=== PATIENT | male | born 1970 | race Caucasian/White ===

== ENCOUNTER 2017-12-02 18:00 | Inpatient (IN) | payer OTHER ==
[2017-12-02] MEDS ORDERED: IOPAMIDOL (ISOVUE-300) 100 ML BTL ONE (18:07)
[2017-12-02] MEDS ORDERED: HYDROmorphONE/DILAUDID 1 MG/ML INJ IVP PRN (20:26)
[2017-12-02] MEDS ORDERED: ONDANSETRON 4 MG/2 ML VIAL IVP PRN (20:26)
[2017-12-02] MEDS ORDERED: LR 1,000 ML IV SCH (20:30)
[2017-12-02] MEDS: PIPERACILLIN/TAZO 3.375 GM/DEX 50 ML IV SCH (21:13)
[2017-12-02] MEDS: ACETAMINOPHEN 500 MG TAB PO SCH (21:14)
--- NOTE | 2017-12-02 21:27 | GHP ---
[f rep st] PREOP HISTORY AND PHYSICAL DATE OF ADMISSION: 12/02/2017 ADMITTING DIAGNOSIS: "Missed" acute appendicitis with abscess. HISTORY: The patient is a 47-year-old white male who was in his usual state of good health until approximately 3 weeks ago. Initially, he had a feeling of being bloated. He also felt he had indigestion. This lasted for several days, then went away for several days, then returned. Six days ago, he started having fevers and sweats. Things became worse last night. He was having nausea and in the last 4 nights he has had more stomach pain. He has had loose stools for the last 2 days. There is no history prior to onset of an upper respiratory tract infection, diarrhea or antibiotics in the past 6 months. There is no history of travel in the last 6 months, prior surgery or prior similar symptoms. SOCIAL HISTORY: He is a nonsmoker. He drinks 1-2 drinks per month. ALLERGIES: He has no known drug allergies. MEDICATIONS: He is not taking any medications. PAST SURGICAL HISTORY: Include a repair of a left elbow dislocation age 12 and a fracture of his right thumb. PAST MEDICAL HISTORY: There is no history of rheumatic fever, tuberculosis, hepatitis, or transfusions. REVIEW OF SYSTEMS: He wears lenses for visual correction. He does have a dental crown. Review of systems otherwise quite negative. No limits on his activities. No history of steroid use. FAMILY HISTORY: His mother is 72 years old and alive and well. His father at age 60 of metastatic (liver) colon cancer. The patient is followed in by 2 paternal half siblings, the 1st is a sister age 25 and second is brother who is age 23. There is no bleeding disorders, clotting disorders or difficulty with anesthesia. PHYSICAL EXAMINATION: GENERAL APPEARANCE: The patient is awake, alert, and in minimal distress. He is pleasant, alert, and oriented. NEUROLOGIC: Monetta Coma Scale of 15. There are no focal or lateralizing neurologic findings. NECK : Unremarkable. There are no carotid bruits. There is no thyroid enlargement. BACK: Unremarkable. LUNGS: Clear to auscultation. CARDIAC: Shows S1, S2 to be normal. Normal split of S2 without murmurs, rubs, or gallops. LYMPHATIC: There is no cervical, supraclavicular, axillary, or inguinal lymphadenopathy. ABDOMEN: Hypoactive bowel sounds. He is tender with cough about 3 fingerbreadths below McBurney's point. He rates it a 5 on a scale of 1-10. Psoas and obturator signs are negative. On a scale of 1-10, palpation reveals tenderness as follows: left upper quadrant 1, left mid abdomen 3, left lower quadrant 1, epigastrium 1, periumbilical area 1, suprapubic area 5, right upper quadrant 1, right mid abdomen 4, right lower quadrant 5-6, and in the right lower quadrant a softball sized fullness can be appreciated. LABORATORIES: Pending. IMPRESSION: Patient with a missed appendicitis. He will receive IV antibiotics. I have informally consulted MAKI flores. A formal consult will be obtained tomorrow for percutaneous drainage, if possible. The patient understands that this may preclude the need for subsequent surgical intervention , but that could not be guaranteed. Certainly, if he is dramatically worse in the next 24 hours, a reconsideration of approaches will be undertaken. /[id number]/MODL MTDD
[2017-12-02 21:37] LABS: PLATELET COUNT 397 10^3/uL (150-400)
[2017-12-02] MEDS: KETOROLAC 30 MG/1 ML SDV IVP SCH (23:02)
[2017-12-03] MEDS: ACETAMINOPHEN 500 MG TAB PO SCH ×3 (04:18→20:24)
[2017-12-03] MEDS: PIPERACILLIN/TAZO 3.375 GM/DEX 50 ML IV SCH ×4 (04:18→20:24)
[2017-12-03 04:46] LABS: PLATELET COUNT 355 10^3/uL (150-400)
[2017-12-03 04:52] LABS: INR 1.31 (0.83-1.16); PROTIME(PATIENT) 16.5 SEC (12.0-15.0)
[2017-12-03] MEDS: KETOROLAC 30 MG/1 ML SDV IVP SCH ×4 (05:25→23:57)
--- NOTE | 2017-12-03 12:20 | ASMTCMCOM ---
CM Note CM Note Notes: Chart reviewed. 47year old male with history of 3 weeks of abdominal pain and bloating diagnosed with ruptured appendix. He is to be evaluated for percutaneous drain to be place, undetermined if patient will require surgical intervention at this time. CM to follow. No current needs identified . Plan: TBD Date Signed: 12/03/2017 12:20 PM Electronically Signed By:Gillian Lucas RN
[2017-12-03] MEDS ORDERED: LIDOCAINE 1% 300 MG/30 ML SDV ONE (12:36)
[2017-12-03] MEDS ORDERED: MIDAZOLAM 2 MG/2 ML VIAL IVP PRN (12:45)
[2017-12-03] MEDS ORDERED: NALOXONE HCL 0.4 MG/ML INJ IVP PRN (12:45)
[2017-12-03] MEDS ORDERED: NS 1,000 ML IV SCH (12:45)
[2017-12-03] MEDS ORDERED: MEPERIDINE 25 MG/ML SYR IVP PRN (12:45)
[2017-12-03] MEDS ORDERED: fentaNYL 100 MCG/2 ML INJ IVP PRN (12:45)
[2017-12-03] MEDS ORDERED: FLUMAZENIL 0.5 MG/5 ML MDV IVP PRN (12:45)
--- NOTE | 2017-12-03 13:55 | PDPROPOC ---
Sedation Plan of Care Sedation Plan of Care: vital signs stable, mental status noted, patient educated of risks, benefits, alternatives, patient can tolerate sedation ASA Classification: ASA 2 Planned drugs: fentanyl, midazolam Mallampati Score: Class 2 Mallampati Reference Image:
--- NOTE | 2017-12-03 13:56 | PDGENHP ---
History & Physical Chief Complaint: appendicitis History of Present Illness: appendix abcess likely amenable to drainage. Relevant Physical Exam: NAD aox3 nonperitoneal Cardiorespiratory Assessment: rrr, nl wob
--- NOTE | 2017-12-03 14:02 | PDMN ---
Medical Necessity Medical necessity: [facility] [place] [facility]-gastroenterology A-2 days; pt presents with n/v abd pain, fevers, CT w/ ruptured appendicitis w/ periappendiceal abscess/ phlegmon, anticipate >2 midnights for poss surgical intervention, IVF, IVABx, IV pain meds
--- NOTE | 2017-12-03 14:32 | SOAPPROG ---
SOAP Progress Note Assessment/Plan: Assessment: 47yo M c perfd appy - VSS, HDs - pain controlled - HDS - TRANG - abdomen is soft, he is minimally tender in the low left pelvis. No rebound or guarding - WBC has drifted down on abx alone. will go to IR today for perc drain, will tailor abx to cultures - NPO, will ADAT after IR Plan: 12/03/17 14:31 Subjective: feels well. Objective: Vital Signs Temp Pulse Resp BP Pulse Ox 37.1 C 75 12 102/86 H 98 12/03/17 13:03 12/03/17 13:03 12/03/17 13:03 12/03/17 13:03 12/03/17 13:03 Laboratory Results 12/03/17 04:30 12/03/17 04:30 12/02/17 12/03/17 12/04/17 05:59 05:59 05:59 Intake Total 1200 Balance 1200 PT 16.5 SEC (12.0-15.0) H 12/03/17 04:30 INR 1.31 (0.83-1.16) H 12/03/17 04:30 ICD10 Worksheet Patient Problems: Problems Problem Status Onset Perforated appendicitis Acute - ICD10 Problem Qualifiers (1) Perforated appendicitis
--- NOTE | 2017-12-03 14:39 | PDRADPN ---
Radiology Procedure Note Date of Procedure: 12/03/17 Radiologist: Albert Garzon Anesthesia: IV Sedation, Local (Specify) Pre-op Diagnosis: appendiceal abscess Post-op Diagnosis: same Indication: perf appy Procedure: CT guided drainage Finding(s): thick white purulence aspirated from 8F drain. irrigated. position is optimal. Inf/Abcess present in the surg proc area at time of surgery?: No Complications: none Specimen(s): yes
[2017-12-04] MEDS: PIPERACILLIN/TAZO 3.375 GM/DEX 50 ML IV SCH ×4 (02:57→20:40)
[2017-12-04] MEDS: ACETAMINOPHEN 500 MG TAB PO SCH ×3 (04:29→20:40)
[2017-12-04 05:47] LABS: PLATELET COUNT 365 10^3/uL (150-400)
[2017-12-04] MEDS: KETOROLAC 30 MG/1 ML SDV IVP SCH ×3 (05:56→18:35)
--- NOTE | 2017-12-04 08:35 | SOAPPROG ---
SOAP Progress Note Assessment/Plan: 12/04/17 08:31 PAD#2 Assessment: Missed appendicitis with abscess drained by IR yesterday. Drainage serous high volume beginning to diminish. Plan: Continue antibiotics and drainage. will start flushing cath now that drainage is diminishing to keep it patient. Subjective: I'm moving my bowels and passing gas Objective: Vital Signs Temp Pulse Resp BP Pulse Ox 37.1 C 55 L 16 135/85 H 98 12/04/17 04:00 12/04/17 04:00 12/04/17 04:00 12/04/17 04:00 12/04/17 04:00 Microbiology 12/03/17 14:20 Gram Stain - Final Appendix - Other Laboratory Results 12/04/17 05:30 12/04/17 05:30 12/03/17 12/04/17 12/05/17 05:59 05:59 05:59 Intake Total 1200 1660 Output Total 932 Balance 1200 728 PT 16.5 SEC (12.0-15.0) H 12/03/17 04:30 INR 1.31 (0.83-1.16) H 12/03/17 04:30 - Time Spent With Patient Time Spent With Patient: 25 - mainly discussing physiology and plans - Pending Discharge Pending Discharge Within 24 Hours: No Pending Discharge Within 48 Hours: No Physical Exam - Physical Exam General Appearance: WD/WN, alert, mild distress Neck: non-tender, supple Respiratory: chest non-tender, lungs clear, normal breath sounds Cardiac/Chest: regular rate, rhythm Abdomen: normal bowel sounds, non-tender, distended, other (drainin place, drainage serous) Male Genitalia: deferred Rectal: deferred Back: Normal inspection Skin: normal color, warm/dry Extremities: normal range of motion, non-tender Neuro/Psych: alert, normal mood/affect, oriented x 3 ICD10 Worksheet Patient Problems: Problems Problem Status Onset Perforated appendicitis Acute
[2017-12-05] MEDS: KETOROLAC 30 MG/1 ML SDV IVP SCH ×4 (00:21→19:01)
[2017-12-05] MEDS: PIPERACILLIN/TAZO 3.375 GM/DEX 50 ML IV SCH ×4 (03:39→20:20)
[2017-12-05] MEDS: ACETAMINOPHEN 500 MG TAB PO SCH ×3 (04:36→20:20)
[2017-12-05 06:20] LABS: PLATELET COUNT 426 10^3/uL (150-400)
[2017-12-05] MEDS ORDERED: ONDANSETRON 4 MG/2 ML VIAL IVP PRN (15:02)
--- NOTE | 2017-12-05 15:37 | SOAPPROG ---
SOAP Progress Note Assessment/Plan: 12/04/17 08:31 PAD#2 Assessment: Missed appendicitis with abscess drained by IR yesterday. Drainage serous high volume beginning to diminish. Plan: Continue antibiotics and drainage. will start flushing cath now that drainage is diminishing to keep it patient. 12/05/17 15:33 PAD#3 Assessment: Had an uncomfortable night again last nigh but has felt much better today. Drainage down, WBC still slightly elevated, Afebrile, Bowel function continues Discussion regarding C. diff carried out, Plan: Continue drain irrigation and antibiotics, Follow wbc, Await sensitivities Subjective: " I think I understand our goals better now" Objective: Vital Signs Temp Pulse Resp BP Pulse Ox 36.8 C 89 20 128/70 H 95 12/05/17 11:19 12/05/17 11:19 12/05/17 11:19 12/05/17 11:19 12/05/17 11:19 Microbiology 12/03/17 14:20 Gram Stain - Final Appendix - Other Laboratory Results 12/05/17 04:54 12/05/17 04:54 12/04/17 12/05/17 12/06/17 05:59 05:59 05:59 Intake Total 1660 Output Total 932 30 Balance 728 -30 PT 16.5 SEC (12.0-15.0) H 12/03/17 04:30 INR 1.31 (0.83-1.16) H 12/03/17 04:30 - Time Spent With Patient Time Spent With Patient: 25 mainly reviewing pathology, progress and setting expectations - Pending Discharge Pending Discharge Within 24 Hours: No Pending Discharge Within 48 Hours: No Physical Exam - Physical Exam General Appearance: WD/WN, alert, mild distress Respiratory: chest non-tender, lungs clear, normal breath sounds Cardiac/Chest: regular rate, rhythm Abdomen: normal bowel sounds, non-tender, soft, other (BETI drainage now more serous and diminishing) Male Genitalia: deferred Rectal: deferred Back: Normal inspection Skin: normal color, warm/dry Extremities: normal range of motion, non-tender, normal inspection Neuro/Psych: no motor/sensory deficits, alert, normal mood/affect ICD10 Worksheet Patient Problems: Problems Problem Status Onset Perforated appendicitis Acute
[2017-12-06] MEDS: KETOROLAC 30 MG/1 ML SDV IVP SCH ×4 (00:17→18:10)
[2017-12-06] MEDS: PIPERACILLIN/TAZO 3.375 GM/DEX 50 ML IV SCH ×4 (03:17→20:37)
[2017-12-06] MEDS: ACETAMINOPHEN 500 MG TAB PO SCH ×3 (04:32→20:37)
[2017-12-06 08:00] LABS: PLATELET COUNT 433 10^3/uL (150-400)
--- NOTE | 2017-12-06 13:26 | SOAPPROG ---
SOAP Progress Note Assessment/Plan: 12/04/17 08:31 PAD#2 Assessment: Missed appendicitis with abscess drained by IR yesterday. Drainage serous high volume beginning to diminish. Plan: Continue antibiotics and drainage. will start flushing cath now that drainage is diminishing to keep it patient. 12/05/17 15:33 PAD#3 Assessment: Had an uncomfortable night again last nigh but has felt much better today. Drainage down, WBC still slightly elevated, Afebrile, Bowel function continues Discussion regarding C. diff carried out, Plan: Continue drain irrigation and antibiotics, Follow wbc, Await sensitivities 12/06/17 13:16 PAD#4 Assessment: Continues to slowly improve. Drainage clear and low volume. WBC stable at 12. Pain control good. Plan: Consider transition to oral antibiotics tomorrow. would leave drain in for the near term Subjective: i feel tired Objective: Vital Signs Temp Pulse Resp BP Pulse Ox 37.3 C 73 12 142/85 H 95 12/06/17 08:00 12/06/17 08:00 12/06/17 08:00 12/06/17 08:00 12/06/17 08:00 Microbiology 12/03/17 14:20 Gram Stain - Final Appendix - Other Laboratory Results 12/06/17 07:40 12/05/17 04:54 12/05/17 12/06/17 12/07/17 05:59 05:59 05:59 Output Total 30 20 Balance -30 -20 PT 16.5 SEC (12.0-15.0) H 12/03/17 04:30 INR 1.31 (0.83-1.16) H 12/03/17 04:30 - Time Spent With Patient Time Spent With Patient: 15 Physical Exam - Physical Exam General Appearance: WD/WN, alert, no apparent distress Respiratory: chest non-tender, lungs clear, normal breath sounds Cardiac/Chest: regular rate, rhythm Abdomen: normal bowel sounds, non-tender, soft Male Genitalia: deferred Rectal: deferred Back: Normal inspection Skin: normal color, warm/dry Neuro/Psych: no motor/sensory deficits, alert, normal mood/affect ICD10 Worksheet Patient Problems: Problems Problem Status Onset Perforated appendicitis Acute
--- NOTE | 2017-12-06 16:15 | ASMTCMCOM ---
CM Note CM Note Notes: Appendicitis w/abscess irrigated, draining and IV ABX continues. May not have discharge needs. CM to follow if things change. Date Signed: 12/06/2017 04:14 PM Electronically Signed By:Mary Gonzales LCSW
[2017-12-07] MEDS: KETOROLAC 30 MG/1 ML SDV IVP SCH ×3 (00:12→12:51)
[2017-12-07] MEDS: PIPERACILLIN/TAZO 3.375 GM/DEX 50 ML IV SCH ×4 (03:51→21:19)
[2017-12-07] MEDS: ACETAMINOPHEN 500 MG TAB PO SCH ×3 (04:52→21:07)
[2017-12-07 07:54] LABS: PLATELET COUNT 464 10^3/uL (150-400)
[2017-12-07] MEDS ORDERED: KETOROLAC 15 MG/1 ML SDV IVP PRN (13:33)
--- NOTE | 2017-12-07 13:57 | SOAPPROG ---
SOAP Progress Note Assessment/Plan: Assessment: 47yo M c perfd appy - continues to do well clinically. - WBC has stagnated at 12, abdomen remains soft and really nontender other than at the site - will plan for repeat CT of abdomen tomorrow - plan pending CT. - Cx growing strep anginosus which is known to recur, will need LT abx. I have asked Dr Cruz of [place] to consult on the patient. Plan: 12/03/17 14:31 12/07/17 13:51 Subjective: doing well. Objective: Vital Signs Temp Pulse Resp BP Pulse Ox 36.7 C 78 16 122/86 H 94 12/07/17 08:00 12/07/17 08:00 12/07/17 08:00 12/07/17 08:00 12/07/17 08:00 Microbiology 12/03/17 14:20 Gram Stain - Final Appendix - Other Laboratory Results 12/07/17 07:40 12/05/17 04:54 12/06/17 12/07/17 12/08/17 05:59 05:59 05:59 Intake Total 580 Output Total 20 10 Balance -20 570 PT 16.5 SEC (12.0-15.0) H 12/03/17 04:30 INR 1.31 (0.83-1.16) H 12/03/17 04:30 ICD10 Worksheet Patient Problems: Problems Problem Status Onset Perforated appendicitis Acute - ICD10 Problem Qualifiers (1) Perforated appendicitis
--- NOTE | 2017-12-07 19:32 | GCON ---
[f rep st] CONSULTATION INFECTIOUS DISEASES CONSULTATION DATE OF CONSULTATION: 12/07/2017 REFERRING PHYSICIAN: Tay Gibson MD REQUESTING PHYSICIAN: Antoine Dumont MD REASON FOR CONSULTATION: Periappendiceal abscess. HISTORY OF PRESENT ILLNESS: The patient is a 47-year-old male without significant past medical histo ry, whom I am asked to see in consultation for periappendiceal abscess. The patient describes develo ping abdominal bloating and pain approximately 4 weeks ago. This was associated with increased heart burn. He notes this occurred intermittently in the interval weeks until he developed a fever and swe ats. This also became associated with nausea, and he had worsening abdominal pain ultimately prompti ng a visit to his primary care physician. He notes that there was a palpable mass in the right lower quadrant, and concern was raised about potential of preceding appendicitis. Evaluation in the emerg ency department revealed a 4.8 x 3.5 x 6.0 cm, peripherally enhancing fluid collection in the right l ower quadrant at the posterior aspect of an enlarged hyperemic appendix. This was felt to be compati ble with ruptured appendicitis and periappendiceal abscess/phlegmon. Subsequently, the patient under went percutaneous drainage of this fluid collection on 12/03/2017. Gram stain showed 4+ white blood cells with 1+ GPCs in chains and subsequently has grown 4+ Streptococcus constellatus. The patient h as been receiving treatment with Zosyn in the interim since presentation. He feels clinically improv ed with decreasing abdominal pain. No further fever, chills or sweats. He is not experiencing nause a, vomiting or diarrhea. Given the growth of Streptococcus constellatus, Infectious Diseases is now consulted to help assist with antibiotic selection and duration. The patient is scheduled for a foll owup CT scan in the morning to reassess abscess. Given the above findings, I am now asked to assist in his ongoing management. PAST MEDICAL HISTORY: Unremarkable. PAST SURGICAL HISTORY: Elbow dislocation, right thumb fracture. CURRENT MEDICATIONS: Zosyn 3.375 g IV q.6 hours, Dilaudid as needed, Toradol as needed. ALLERGIES: No known drug allergies. SOCIAL HISTORY: Patient does not smoke. He rarely drinks alcohol. No drug use. 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 No pets at home. No recent travel. FAMILY HISTORY: Father of colon cancer. REVIEW OF SYSTEMS: Outside that noted in the HPI, remainder of 10-system review was unremarkable. PHYSICAL EXAMINATION: VITAL SIGNS: Temperature 36.6, heart rate 83, respiratory rate 16, blood pres sure 136/80, oxygen saturation 94% on room air. GENERAL: Patient is well nourished, well developed, in no acute distress. He appears nontoxic. HEENT: There is no scleral icterus, conjunctival injec tion, or conjunctival petechiae. The oropharynx is clear without lesions. Mucous membranes are mois t. Dentition is in good repair. There is no nasal discharge. There is no tenderness over the front al, maxillary, or mastoid area. NECK: Supple without palpable lymphadenopathy or thyromegaly. CHES T: Clear to auscultation bilaterally without adventitious sounds. The respiratory effort is normal. CARDIOVASCULAR: Regular rate and rhythm without murmurs, gallops, or rubs. ABDOMEN: Soft, mildly tender in the right lower quadrant. Bowel sounds are present. Drain is in place with serous output . There is a small amount of debris in the drain bulb. No palpable organomegaly. MUSCULOSKELETAL: No cyanosis, clubbing, or edema. SKIN: No rashes present. Skin is warm and dry to touch. NEUROLO GIC: Patient is alert and interacts appropriately with examiner. Cranial nerves 2-12 are grossly in tact. Sensation is grossly intact. Muscle tone and bulk are normal. LYMPHATICS: No cervical or landeros praclavicular nodes palpable. LABORATORY DATA: White blood cell count 12.7, hematocrit 35.5, platelets 464, neutrophils 78%. Seru m creatinine 0.7. Abscess cultures with growth of Streptococcus constellatus. CT scan of the abdome n and pelvis as outlined above, which was reviewed and interpreted by me with Radiology today. IMPRESSION: Perforated appendicitis with periappendiceal abscess: Abscess is now status post percut aneous drainage with appendectomy, deferred based on presence of abscess and phlegmon with likely dur ation of several weeks. Given the growth of Streptococcus constellatus, favor a 2-week course of int ravenous antibiotic therapy with ceftriaxone and oral metronidazole. Additional decision making will be based on followup CT scan, which is scheduled for tomorrow. Interval appendectomy will be define d in his surgical followup over time. RECOMMENDATIONS: 1. Ceftriaxone 2 g IV daily. 2. Metronidazole 500 mg orally 3 times per day. 3. Discontinue Zosyn. 4. PICC line placement. 5. Risks and benefits of antibiotic therapy and PICC line discussed with patient today, including ne ed to avoid alcohol with metronidazole and potential risk of peripheral neuropathy; side effects of c eftriaxone, including potential for allergic reactions also discussed with patient. 6. Await repeat CT scan, which will be performed tomorrow. Thank you for this consultation. We will continue to follow the patient with you. /[id number]/MODL
[2017-12-07] MEDS ORDERED: ALTEPLASE 2 MG VIAL IVP PRN (19:49)
[2017-12-08] MEDS: ACETAMINOPHEN 500 MG TAB PO SCH ×3 (06:11→21:01)
[2017-12-08] MEDS: metroNIDAZOLE 500 MG TAB PO SCH ×3 (08:14→21:01)
[2017-12-08] MEDS: cefTRIAXone 2 GM in D5W 50 ML IV SCH (08:14)
--- NOTE | 2017-12-08 08:32 | PDIAF ---
- Diagnosis Diagnosis: Periappendiceal abscess Code Status: Full Code - Medication Management Discharge Medications: Medications to Continue on Transfer Herbals/Supplements -Info Only 1 ea PO DAILY 12/02/17 [Last Taken Unknown] Usp Antibiotics: Ceftriaxone 2 g IV Q 24 hr, metronidazole 500 mg orally three times daily Usp Antibiotic Stop Date: 12/18/17 Discharge Medications: Refer to the Discharge Home Medication list for PRN reason. PICC Care - Routine: Yes - Orders Services needed: Home [facility] Care Face to Face: I certify that this patient was under my care and that I had the required [id number] encounter meeting the encounter requirements on the discharge day. My findings support the fact that the patient is homebound as defined in Home Care Face to Face Continued: CMS Chapter 7 Medicare Benefits Manual 30.1.1 , The condition of the patient is such that there exists a normal inability to leave home and consequently, leaving home would require a considerable and taxing effort. - Labs/Radiology CBC w/diff Date: 12/13/17 CMP Date: 12/13/17 Call or Fax Lab and Imaging Results to: Dr. Cruz, [id number] - Follow Up Care Current Providers and Referrals: Patient,NotPresent [Primary Care Provider] -
--- NOTE | 2017-12-08 08:58 | SOAPPROG ---
CHARLEY Progress Note Assessment/Plan: Assessment: 47 y/o M with perforated appy S: Continuing to feel better. O: Alert Afebrile VSS WBC stable at 12 Abdomen: soft, nontender, BETI with serosanguinous drainage Plan: Continue current course. Will reevaluate plan after repeat CT scan today. Answered several questions today about plan going forward. Pt may need lap appy at some point to avoid recurrent appendicitis. PICC line today. IV ceftriaxone and flagyl per ID. Pt seen and evaluated with Dr. Mello. 12/08/17 08:58 Objective: Vital Signs Temp Pulse Resp BP Pulse Ox 37.0 C 80 14 137/81 H 92 12/08/17 07:18 12/08/17 07:18 12/08/17 07:18 12/08/17 07:18 12/08/17 07:18 Microbiology 12/03/17 14:20 Gram Stain - Final Appendix - Other Laboratory Results 12/07/17 07:40 12/05/17 04:54 12/07/17 12/08/17 12/09/17 05:59 05:59 05:59 Intake Total 580 600 Output Total 10 20 Balance 570 580 PT 16.5 SEC (12.0-15.0) H 12/03/17 04:30 INR 1.31 (0.83-1.16) H 12/03/17 04:30 ICD10 Worksheet Patient Problems: Problems Problem Status Onset Perforated appendicitis Acute
--- NOTE | 2017-12-08 10:20 | ASMTCMCOM ---
CM Note CM Note Notes: Pt needs IV abx, referral sent to [facility]. PICC placement today. Date Signed: 12/08/2017 10:19 AM Electronically Signed By:Arcelia Alexandra RN
[2017-12-08] MEDS ORDERED: IOPAMIDOL (ISOVUE-300) 100 ML BTL ONE (12:44)
--- NOTE | 2017-12-08 14:32 | PCMIDPN ---
Assessment/Plan: # Alix-appendiceal abscess with strep constellatus, presumed polymicrobial with GI source s/p drainage with significant reduction in size of abscess on CT scan. CT scan today personally reviewed by me with radiology. In addition to significant reduction in abscess size, noted constipation. Last CBC showed persistent leukocytosis --continue ceftriaxone + flagyl through 12/18/17 --drainage management per surgery --PICC line today --will establish follow up with patient --CBC in AM Meds Ceftriaxone 2gm IV daily flagyl 500mg PO TID Subjective: much less pain than on admission appetite improving Objective: Vital Signs Temp Pulse Resp BP Pulse Ox 37.0 C 80 14 137/81 H 92 12/08/17 07:18 12/08/17 07:18 12/08/17 07:18 12/08/17 07:18 12/08/17 07:18 Microbiology 12/03/17 14:20 Gram Stain - Final Appendix - Other Laboratory Results 12/07/17 07:40 12/05/17 04:54 12/07/17 12/08/17 12/09/17 05:59 05:59 05:59 Intake Total 580 600 Output Total 10 20 Balance 570 580 - Physical Exam General Appearance: alert, no apparent distress Respiratory: No accessory muscle use Extremities: non-tender, No pedal edema Abdomen: normal bowel sounds, non-tender, soft, other (Drain with serous fluid with small debris) Skin: warm/dry, No diaphoresis, No rash Neuro/Psych: alert, normal mood/affect, oriented x 3 - Time Spent With Patient Time Spent with Patient: greater than 35 minutes (review course of treatment, risk for recurrance, risks of antibiotic therapy and process for getting urgent question answered as outpatient) Time Spent with Patient: Greater than 35 minutes spent on this patients care, greater than 50% of time spent counseling, educating, and coordinating care regarding the above mentioned plan. ICD10 Worksheet Patient Problems: Problems Problem Status Onset Perforated appendicitis Acute
--- NOTE | 2017-12-08 14:36 | ASMTCMCOM ---
CM Note CM Note Notes: Spoke w/Glo at [facility], insurance coverage is better if pt does IV abx at home. Pt agrees to plan, still waiting for PICC placement, will dc tomorrow. Glo to set up HC RN for dosing. DC Plan: Home Infusion/ [facility] + [facility] RN Date Signed: 12/08/2017 02:35 PM Electronically Signed By:Arcelia Alexandra RN
[2017-12-08] MEDS ORDERED: LIDOCAINE 1% 300 MG/30 ML SDV ONE (16:42)
--- NOTE | 2017-12-08 22:39 | SOAPPROG ---
SOAP Progress Note Assessment/Plan: Assessment: COMFORTABLE, AFEBRILE CT MUCH IMPROVED Plan:? HOME IN AM 12/08/17 22:37 Objective: Vital Signs Temp Pulse Resp BP Pulse Ox 37.0 C 71 17 128/83 H 94 12/08/17 22:07 12/08/17 22:07 12/08/17 22:07 12/08/17 22:07 12/08/17 22:07 Microbiology 12/03/17 14:20 Gram Stain - Final Appendix - Other Laboratory Results 12/08/17 18:00 12/05/17 04:54 12/07/17 12/08/17 12/09/17 05:59 05:59 05:59 Intake Total 580 600 Output Total 10 20 Balance 570 580 PT 16.5 SEC (12.0-15.0) H 12/03/17 04:30 INR 1.31 (0.83-1.16) H 12/03/17 04:30 ICD10 Worksheet Patient Problems: Problems Problem Status Onset Perforated appendicitis Acute
[2017-12-09] MEDS: ACETAMINOPHEN 500 MG TAB PO SCH (05:29)
[2017-12-09] MEDS: metroNIDAZOLE 500 MG TAB PO SCH (05:29)
[2017-12-09 05:49] LABS: PLATELET COUNT 537 10^3/uL (150-400)
--- NOTE | 2017-12-09 07:53 | PDIAF ---
- Diagnosis Diagnosis: Periappendiceal abscess Code Status: Full Code - Medication Management Discharge Medications: Medications to Continue on Transfer Herbals/Supplements -Info Only 1 ea PO DAILY 12/02/17 [Last Taken Unknown] cefTRIAXone [Rocephin] 2 gm IV DAILY vial 12/09/17 [Last Taken Unknown] metroNIDAZOLE [Flagyl 500 mg (*)] 500 mg PO Q8HRS 10 Days tab 12/09/17 [Last Taken Unknown] Cryptologic Linguist Antibiotics: Ceftriaxone 2 g IV Q 24 hr, metronidazole 500 mg orally three times daily Alf Antibiotic Stop Date: 12/18/17 Discharge Medications: Refer to the Discharge Home Medication list for PRN reason. PICC Care - Routine: Yes - Orders Services needed: Home Care, Registered Nurse Home Care Face to Face: I certify that this patient was under my care and that I had the required [id number] encounter meeting the encounter requirements on the discharge day. My findings support the fact that the patient is homebound as defined in Home Care Face to Face Continued: CMS Chapter 7 Medicare Benefits Manual 30.1.1 , The condition of the patient is such that there exists a normal inability to leave home and consequently, leaving home would require a considerable and taxing effort. Diet Recommendation: no restrictions on diet Diet Texture: Regular Texture Diet Additional Instructions: Keep drain site/dressing dry Continue to flush the drain with 5ml sterile saline three times per day. Follow up in Dr. Mello' office on Wednesday. Call with fever, chills, or increased pain. - Labs/Radiology CBC w/diff Date: 12/13/17 CMP Date: 12/13/17 Call or Fax Lab and Imaging Results to: Dr. Cruz, [id number] - Follow Up Care Current Providers and Referrals: Marcell Mello MD [Medical Doctor] - 12/13/17 Patient,NotPresent [Primary Care Provider] -
[2017-12-09 08:13] VITALS: BP 142/85
[2017-12-09] MEDS: cefTRIAXone 2 GM in D5W 50 ML IV SCH (08:15)
--- NOTE | 2017-12-09 10:08 | ASMTLACE ---
LACE Length of stay for Answers: 7-13 days current admission Acuity / Level of Answers: Yes Care: Did the patient have an inpatient admission? Score: 8 Date Signed: 12/09/2017 10:08 AM Electronically Signed By:Arcelia Alexandra RN
== END 2017-12-09 11:30 | disposition home health service (06) | DRG 373 ==
LOC: FIMAGING 18:00 → OBSVTOIN 19:21 → F3E 19:21
PROVIDERS: ADMIT Surgery; ATTEND Surgery
PROC: 0D9J30Z Drainage of Appendix with Drainage Device, Percutaneous Approach (ICD-10-PCS; principal; 2017-12-03 14:47)
PROC: 02HV33Z Insertion of Infusion Device into Superior Vena Cava, Percutaneous Approach (ICD-10-PCS; 2017-12-08)
DX: K35.3 Acute appendicitis with localized peritonitis (principal); B95.5 Unspecified streptococcus as the cause of diseases classified elsewhere
CPT/HCPCS: C1751; J0696; J1885; J2250; J2310; J2405; J2543; J3010; Q9967

== ENCOUNTER → 2017-12-20 | Day surgery (SDC) | payer OTHER ==
[~2017-12-20] MED LIST: IOPAMIDOL (ISOVUE-300) 100 ML BTL ONE
== END | disposition home or self-care (01) ==
LOC: FIMAGING 14:03
PROVIDERS: ATTEND Surgery
PROC: 3E0H8GC Introduction of Other Therapeutic Substance into Lower GI, Via Natural or Artificial Opening Endoscopic (ICD-10-PCS; principal; 2017-12-20)
DX: Z98.890 Other specified postprocedural states (principal); K35.3 Acute appendicitis with localized peritonitis
CPT/HCPCS: Q9967

== ENCOUNTER → 2018-02-04 | Outpatient (CLI) | payer OTHER | LOC: FIMAGING 14:38 | PROVIDERS: ATTEND Surgery | DX: K35.2 Acute appendicitis with generalized peritonitis (principal); D18.03 Hemangioma of intra-abdominal structures | CPT/HCPCS: Q9967 ==

== ENCOUNTER 2018-03-10 05:50 | Day surgery (SDC) | payer OTHER ==
[~2018-03-10 05:50] MED LIST changes: -IOPAMIDOL (ISOVUE-300) 100 ML BTL ONE; +LIDOCAINE 1% 2 ML INJ ID PRN; +LR 1,000 ML IV ONE
[2018-03-10] MEDS ORDERED: cefOXitin SODIUM 2 GM in NS 100 ML IV ONE (06:00)
[2018-03-10] MEDS ORDERED: MIDAZOLAM 2 MG/2 ML VIAL IVP ONE (07:01)
--- NOTE | 2018-03-10 07:04 | PDANEPAE ---
ANE Past Medical History - Cardiovascular History Hx Hypertension: No Hx Arrhythmias: No Hx Chest Pain: No Hx Coronary Artery / Peripheral Vascular Disease: No Hx CHF / Valvular Disease: No Hx Palpitations: No - Pulmonary History Hx COPD: No Hx Asthma/Reactive Airway Disease: No Hx Recent Upper Respiratory Infection: No Hx Oxygen in Use at Home: No Hx Sleep Apnea: No Sleep Apnea Screening Result - Last Documented: Negative - Neurologic History Hx Cerebrovascular Accident: No Hx Seizures: No Hx Dementia: No - Endocrine History Hx Diabetes: No Obesity: no - Renal History Hx Renal Disorders: No - Liver History Hx Hepatic Disorders: No - Neurological & Psychiatric Hx Hx Neurological and Psychiatric Disorders: No - Cancer History Hx Cancer: No - Congenital Disorder History Hx Congenital Disorders: No - GI History GERD: no Hx Gastrointestinal Disorders: Yes Gastrointestinal History Comment: perforated appendix - Chronic Pain History Chronic Pain: No - Surgical History Prior Surgeries: thumb sx. orif elbow ANE Review of Systems Review of Systems: - Exercise capacity METS (RN): 4 METS ANE Patient History - Allergies Allergies/Adverse Reactions: IV CONTRAST DYE Allergy (Uncoded 03/09/18 16:25) HIVES & SWELLING ALL OVER BODY - Home Medications Home medications: home medication list seen and reviewed Home Medications: Herbals/Supplements -Info Only 1 ea PO DAILY 12/02/17 [Last Taken 03/06/18] - NPO status NPO Status: no food or drink >8 hours NPO Since - Liquids (Date): 03/09/18 NPO Since - Liquids (Time): 22:30 NPO Since - Solids (Date): 03/09/18 NPO Since - Solids (Time): 21:30 - Anes Hx Anes Hx: no prior problems - Smoking Hx Smoking Status: Never smoked ANE Labs/Vital Signs - Vital Signs Blood Pressure: 143/85 Heart Rate: 77 Respiratory Rate: 18 O2 Sat (%): 95 Height: 175.26 cm Weight: 72.575 kg ANE Physical Exam - Airway Neck exam: FROM Mallampati Score: Class 3 Mouth exam: normal dental/mouth exam, small mouth opening - Pulmonary Pulmonary: no respiratory distress, no rales or rhonchi, clear to auscultation - Cardiovascular Cardiovascular: regular rate and rhythym, no murmur, rub, or gallop - ASA Status ASA Status: I ANE Anesthesia Plan Anesthesia Plan: general endotracheal anesthesia
[2018-03-10] MEDS ORDERED: HEPARIN 1000 UNIT/1 ML MDV ONE (07:06)
[2018-03-10] MEDS ORDERED: BUPIVACAINE 0.5% 30 ML SDV ONE (07:06)
[2018-03-10] MEDS ORDERED: ceFAZolin 1 GM/5 ML SYR ONE (07:06)
[2018-03-10] MEDS ORDERED: NALOXONE HCL 0.4 MG/ML INJ IVP PRN (07:14)
[2018-03-10] MEDS ORDERED: PROMETHAZINE HCL 25 MG/ML INJ IVP PRN (07:14)
[2018-03-10] MEDS ORDERED: LR 500 ML IV PRN (07:14)
[2018-03-10] MEDS ORDERED: MEPERIDINE 25 MG/0.5 ML AMP IVP PRN (07:14)
[2018-03-10] MEDS ORDERED: fentaNYL 100 MCG/2 ML INJ IVP PRN (07:14)
[2018-03-10] MEDS ORDERED: ACETAMINOPHEN 500 MG TAB PO PRN (07:14)
[2018-03-10] MEDS ORDERED: oxyCODONE IR 5 MG TAB PO PRN (07:14)
[2018-03-10] MEDS ORDERED: ONDANSETRON 4 MG/2 ML VIAL IVP PRN (07:14)
[2018-03-10] MEDS ORDERED: fentaNYL 100 MCG/2 ML INJ ONE ×2 (07:16)
--- NOTE | 2018-03-10 07:16 | PDHPUP ---
History & Physical Update H&P update statement: This history and physical update is based on an assessment of the patient which was completed after admission or registration (within 24 hours), but prior to the surgery/procedure. H&P update: H&P reviewed & patient examined, no change in patient's condition since H&P completed
[2018-03-10] MEDS ORDERED: PROPOFOL 200 MG/20 ML VIAL ONE (07:17)
[2018-03-10] MEDS ORDERED: LIDOCAINE 2% 2 ML INJ ONE (07:18)
[2018-03-10] MEDS ORDERED: ONDANSETRON 4 MG/2 ML VIAL ONE (07:18)
[2018-03-10] MEDS ORDERED: ROCURONIUM 50 MG/5 ML VIAL ONE (07:18)
[2018-03-10] MEDS ORDERED: DEXAMETHASONE 4 MG/ML VIAL ONE (07:18)
[2018-03-10] MEDS ORDERED: KETOROLAC 30 MG/1 ML SDV ONE (07:48)
[2018-03-10] MEDS ORDERED: NEOSTIGMINE METHYLSULFATE 5 MG/5 ML SYR ONE (07:48)
[2018-03-10] MEDS ORDERED: GLYCOPYRROLATE 0.2 MG/1 ML VIAL ONE (07:48)
--- NOTE | 2018-03-10 08:02 | POSTOPPROG ---
Post Op Note Date of Operation: 03/10/18 Surgeon: Marcell Mello Licensed Vocational Nurse: Sanam Anesthesiologist: Ronda Anesthesia: GET(General Endotracheal) Pre-op Diagnosis: Appendiceal abscess Post-op Diagnosis: same Indication: same Procedure: Interval lap appy Findings: Mildly scarred down appendix Inf/Abcess present in the surg proc area at time of surgery?: No Depth: Organ Space EBL: Minimal Specimen(s): Appendix
--- NOTE | 2018-03-10 08:22 | POSTANESTH ---
Post Anesthetic Evaluation Cardiovascular Status: Normal, Stable, Similar to Pre-Op Cond Respiratory Status: Normal, Stable, Similar to Pre-op Cond. Level of Consciousness/Mental Status: Can Participate in Eval, Mildly Sleepy, Arousable Pain Control: Adequate, Prn Tx Ordered Nausea/Vomiting Control: Adequate, Prn Tx Ordered Complications Possibly Related to Anesthesia: None Noted
[2018-03-10 10:28] VITALS: BP 161/90
--- NOTE | 2018-03-13 07:01 | GOP ---
DATE OF OPERATION: 03/10/2018 SURGEON: Marcell Mello MD INSPECTOR GLASS OR MIRROR: Jumana Marion NP. PREOPERATIVE DIAGNOSIS: Previous appendiceal abscess. POSTOPERATIVE DIAGNOSIS: Previous appendiceal abscess. PROCEDURE PERFORMED: Laparoscopic appendectomy. 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 The abscess was pretty much resolved except for some minor adhesions. DESCRIPTION OF PROCEDURE: The patient was taken to the operating room where he received a satisfacto ry general endotracheal anesthesia. He was placed in the supine position, prepped and draped in the usual sterile fashion. A periumbilical incision was made. A Veress needle was inserted. Pneumoperi toneum was established. A trocar was introduced. Laparoscope introduced. Good visualization was ob tained. Two other trocars were placed in the lower abdomen under direct vision. The cecum was rotat ed medially. Some adhesions were taken down. The appendix was delivered up from a retrocecal positi on. The mesoappendix was divided with the Harmonic Scalpel until the base of the appendix was skelet onized. It was then divided with Endo-RAMANA stapler, placed in a specimen bag, and extracted through t he upper midline port site. Hemostasis was assured. Trocars removed under direct vision. Trocar si jeane were closed with 0 Vicryl for the fascia, 4-0 Monocryl subcuticular stitch for the skin. All lay ers infiltrated with 0.5% Marcaine. Blood loss was negligible. He was taken to the recovery room in good condition. There were no complications. /[id number]/MODL
== END 2018-03-10 10:20 | disposition home or self-care (01) ==
LOC: FSGY 05:50 → UNDOADMOB 05:50 → F3N 05:50 → EDSTATUS 07:15 → UNDODISOB 10:20 → FSGY 10:20
PROVIDERS: ATTEND Surgery
PROC: 0DTJ4ZZ Resection of Appendix, Percutaneous Endoscopic Approach (ICD-10-PCS; principal; 2018-03-10 07:15)
DX: K36 Other appendicitis (principal); R21 Rash and other nonspecific skin eruption
CPT/HCPCS: J0694; J1100; J1885; J2250; J2405; J2704; J2710; J3010

== ENCOUNTER → 2018-04-01 | Outpatient (CLI) | payer OTHER | LOC: FIMAGING 16:24 | PROVIDERS: ATTEND Surgery | DX: R10.31 Right lower quadrant pain (principal) ==

== ENCOUNTER 2018-04-24 13:24 | Emergency (ER) | payer OTHER ==
[2018-04-24] MEDS ORDERED: ONDANSETRON 4 MG/2 ML VIAL IVP ONE (13:40)
[2018-04-24] MEDS ORDERED: NS 1,000 ML IV ONE (13:40)
--- NOTE | 2018-04-24 13:40 | EDPHY ---
H & P Time Seen by Provider: 04/24/18 13:28 HPI/ROS: CHIEF COMPLAINT: Abdominal pain and nausea HISTORY OF PRESENT ILLNESS: Patient had appendiceal abscess drained in November of this year and then interval appendectomy in February. About 3 weeks ago developed sharp pain in his right lower quadrant would be 30 min on and then off about 6/10 associated with nausea and weakness. He did see his surgeon was told to just monitor it, they did ultrasound a blood test. He is okay for about a week and then over the last week symptoms reoccurred. Last Wednesday it started with worsening pain associated with nausea and weakness. Yesterday he felt so weak that "just opening a zipper seemed like a big effort." He describes pain is right lower quadrant associated with occasional diarrhea. No urinary symptoms. Sometimes radiates down to his groin. Not better worse with anything. REVIEW OF SYSTEMS: Eye: no change in vision ENT: no sore throat Cardiac: no chest pain or syncope Pulmonary: no cough or SOB Abdomen: HPI Musculoskeletal: no back pain Skin: Red rash in his chest. He says that after gets at the shower he often has red rash on his chest and back and that is been happening for decades. Neuro: no headache Constitutional: no fever : no urinary symptoms A comprehensive 10 point review of systems is otherwise negative aside from elements mentioned in the history of present illness. PAST MEDICAL HISTORY: As in HPI Social history: Nonsmoker General Appearance: Alert and conversant, cooperative. Eyes: No scleral icterus. ENT, Mouth: Normal mucous membranes. Respiratory: Normal respiratory effort, breath sounds equal, lungs are clear to auscultation. Cardiovascular: Regular rate and rhythm. Gastrointestinal: Abdomen is soft and non tender. No hernia, normal male . Neurological: Alert, face symmetric, normal motor and sensory in extremities. Skin: Red blanchable rash on his chest and torso. Musculoskeletal: No peripheral edema. Psychiatric: Not agitated. Emergency Department course/MDM: Plan CBC and chemistry, 4 mg IV Zofran for nausea, urinalysis and CT scanning discussed and consented. He had a full body pretty severe rash with IV contrast and states he has an allergy, I think that the benefit of adding IV contrast is outweighed by potential risk of anaphylaxis. 1525: Results discussed, GI referral. Nausea prescription. CT discussed with Radiology, per Dr. Cruz no evidence of abscess or renal colic or obstruction or other right lower quadrant abdominal problem. Smoking Status: Never smoked Constitutional: Initial Vital Signs Temperature (C) 36.8 C 04/24/18 13:25 Heart Rate 94 04/24/18 13:25 Respiratory Rate 18 04/24/18 13:25 Blood Pressure 190/105 H 04/24/18 13:25 O2 Sat (%) 96 04/24/18 13:25 O2 Delivery Mode Room Air Allergies/Adverse Reactions: IV CONTRAST DYE Allergy (Uncoded 04/24/18 13:25) HIVES & SWELLING ALL OVER BODY Home Medications: Medication Instructions Recorded Herbals/Supplements -Info Only 1 ea PO DAILY 12/02/17 Ondansetron Odt [Zofran Odt] 4 mg PO Q4PRN #10 tab 04/24/18 Medical Decision Making - Diagnostics Imaging Results: Imaging Impressions Abdomen/Pelvis CT 04/24/18 13:40 Impression: 1. Postoperative changes of appendectomy with no postoperative complication identified. 2. See above report for additional findings. Results called and discussed with Gennaro Melendez MD on April 24, 2018 at 1445 hours. Imaging: Discussed imaging studies w/ call center support representative Radiologist Differential Diagnosis: Differential considered including but not limited to renal colic, appendiceal abscess, bowel obstruction, internal hernia, UTI, metabolic abnormality - Data Points Laboratory Results: Laboratory Results 04/24/18 13:38 04/24/18 13:38 04/24/18 04/24/18 04/24/18 14:58 13:38 13:38 WBC 7.99 10^3/uL 10^3/uL (3.80-9.50) RBC 5.47 10^6/uL 10^6/uL (4.40-6.38) Hgb 16.1 g/dL g/dL (13.7-17.5) Hct 48.3 % % (40.0-51.0) MCV 88.3 fL fL (81.5-99.8) MCH 29.4 pg pg (27.9-34.1) MCHC 33.3 g/dL g/dL (32.4-36.7) RDW 13.3 % % (11.5-15.2) Plt Count 266 10^3/uL 10^3/uL (150-400) MPV 9.4 fL fL (8.7-11.7) Neut % (Auto) 71.6 % % (39.3-74.2) Lymph % (Auto) 20.4 % % (15.0-45.0) [place] % (Auto) 6.3 % % (4.5-13.0) Eos % (Auto) 0.6 % % (0.6-7.6) Baso % (Auto) 0.8 % % (0.3-1.7) Nucleat RBC Rel Count 0.0 % % (0.0-0.2) Absolute Neuts (auto) 5.73 10^3/uL 10^3/uL (1.70-6.50) Absolute Lymphs (auto) 1.63 10^3/uL 10^3/uL (1.00-3.00) Absolute Monos (auto) 0.50 10^3/uL 10^3/uL (0.30-0.80) Absolute Eos (auto) 0.05 10^3/uL 10^3/uL (0.03-0.40) Absolute Basos (auto) 0.06 10^3/uL 10^3/uL (0.02-0.10) Absolute Nucleated RBC 0.00 10^3/uL 10^3/uL (0-0.01) Immature Gran % 0.3 % % (0.0-1.1) Immature Gran # 0.02 10^3/uL 10^3/uL (0.00-0.10) Sodium 141 mEq/L mEq/L (135-145) Potassium 4.3 mEq/L mEq/L (3.3-5.0) Chloride 103 mEq/L mEq/L (97-110) Carbon Dioxide 26 mEq/l mEq/l (22-31) Anion Gap 12 mEq/L mEq/L (6-14) BUN 11 mg/dL mg/dL (7-23) Creatinine 0.9 mg/dL mg/dL (0.7-1.3) Estimated GFR > 60 Glucose 100 mg/dL mg/dL (70-100) Calcium 10.9 mg/dL H mg/dL (8.5-10.4) Phosphorus 4.1 mg/dL mg/dL (2.5-4.5) Urine Color PALE YELLOW Urine Appearance CLEAR Urine pH 7.0 (5.0-7.5) Ur Specific [place] 1.002 (1.002-1.030) Urine Protein NEGATIVE (NEGATIVE) Urine Ketones NEGATIVE (NEGATIVE) Urine Blood NEGATIVE (NEGATIVE) Urine Nitrate NEGATIVE (NEGATIVE) Urine Bilirubin NEGATIVE (NEGATIVE) Urine Urobilinogen NEGATIVE EU EU (0.2-1.0) Ur Leukocyte Esterase NEGATIVE (NEGATIVE) Urine Glucose NEGATIVE (NEGATIVE) Medications Given: Discontinued Medications Sodium Chloride (Ns) 1,000 mls @ 0 mls/hr IV EDNOW ONE; Wide Open PRN Reason: Protocol Stop: 04/24/18 13:41 Last Admin: 04/24/18 13:48 Dose: 1,000 mls Ondansetron HCl (Zofran) 4 mg IVP EDNOW ONE Stop: 04/24/18 13:41 Last Admin: 04/24/18 13:48 Dose: 4 mg Departure - Departure Disposition: Home, Routine, Self-Care Clinical Impression: Abdominal pain Qualifiers: Abdominal location: right lower quadrant Qualified Code(s): R10.31 - Right lower quadrant pain Condition: Good Instructions: Acute Abdominal Pain (ED) Referrals: Antoinette Price MD [Medical Doctor] - As per Instructions Prescriptions: Ondansetron Odt [Zofran Odt] 4 mg PO Q4PRN #10 tab
[2018-04-24 13:59] LABS: PLATELET COUNT 266 10^3/uL (150-400)
[2018-04-24 15:49] VITALS: BP 143/90
== END 2018-04-24 15:52 | disposition home or self-care (01) ==
DX: R10.31 Right lower quadrant pain (principal); Z90.49 Acquired absence of other specified parts of digestive tract
CPT/HCPCS: 96374; J2405